=== PATIENT | female | born 1965 | race Caucasian/White ===

== ENCOUNTER → 2017-11-22 | Outpatient (CLI) | payer MEDICARE ==
[~2017-11-22] MED LIST: ACIDOPHILUS PO; ALBIPROI INH; ALBU90OI; ALBU90OI6 INH; ALBU90OI61 INH; AMOCLA875 PO; AMOX500 PO; ARIP20 PO; ASCO1ER PO; ATOR80 PO; ATORVASTATIN CA20 MG PO; AZIT250 PO; AZIT500 PO; Amoxicillin500 MG PO; Ativan1 MG PO; BENZ100A PO; BENZ2 PO; BICITRA PO; CHRO200 PO; CIPR500 PO; CLAR500 PO; CLON.1 PO; CLON.5 PO; CLON1 PO; CODGUAEL PO; DULO30 PO; ESCI5; ESOM20 PO; FENO160 PO; FENO48 PO; FISH1000 PO; FLUC150A PO; GLIP5 PO; GUAI100SY PO; HUMALOG; HYDACE5 PO; HYDGUAL120 PO; Hair, Skin & N1 EACH PO; Humalog Mi100 UNIT/4 SC; Humalog100 UNIT/1; INCARCERATION; INSULANPEN; INSULIN; LAMO100; LAMO100 PO; LANTUS; LATUDA120 MG PO; LATUDA20 MG PO; LATUDA40 MG PO; LATUDA80 MG PO; LEVSOD25 PO; LEVSOD50 PO; LIOT25 PO; LITH300ER PO; LORA.5; LORA1; LORA1 PO; LORA10ER; LOVA40 PO; MECL25 PO; METF500C PO; MULVITMIND PO; Norco 5-325 Ta1 EACH PO; OMEP20ER PO; ONDA4 PO; ONDA8ODT MM; OTC ALLERGY MED; OXYACE5T PO; OXYC10TA19; PANT40 PO; PRILOSEC; PROG100 PO; PROM25 PO; Percocet 5-3251 EACH PO; Protonix40 MG PO; Prozac40 MG PO; QUET100; QUET300; QUET300 PO; QVAR7.3 G1 IH; ROPI1 PO; SUBOXONE 8 MG-1 EACH SL; SUCR1 PO; SUCRALFATE; SULTRIDS PO; Symbyax 3-25 M1 EACH PO; TRAM50 PO; TRAZ100; TRAZ100 PO; TRET.1TC; Trazodone HCl300 MG PO; VENL150ER PO; VENL75ER; Zantac150 MG PO; Zofran Odt4 MG PO; Zofran Odt4 MG SL; Zofran8 MG PO; [UNRECOGNIZED DRUG - OTHER]; [UNRECOGNIZED DRUG - OTHER]; [UNRECOGNIZED DRUG - OTHER] PO; [UNRECOGNIZED DRUG - REMARK]
[2017-11-25 12:57] LABS: HPV Genotype 16 Not Detected (NOTDET); HPV Genotype 18 Not Detected (NOTDET)
[2017-11-28 14:35] LABS: HPV High Risk Other Not Detected (NOTDET)
== END ==
LOC: LAB 20:02 → LAB SHORT 20:02
PROVIDERS: Registered Nurse
DX: Z12.4 Encounter for screening for malignant neoplasm of cervix (principal)
CPT/HCPCS: 87624; G0123

== ENCOUNTER → 2018-09-06 | Outpatient (CLI) | payer MEDICARE | END | disposition home or self-care (01) | LOC: LAB SHORT 12:27 → PLD 12:27 | DX: N85.00 Endometrial hyperplasia, unspecified (principal); N95.0 Postmenopausal bleeding | CPT/HCPCS: 88305 ==

== ENCOUNTER 2018-11-29 20:04 | Emergency (ER) | payer MEDICARE ==
[~2018-11-29] VITALS: Ht 162.6 cm; Wt 77.1 kg
[2018-11-29 20:36] LABS: Hematocrit 38.7 % (33.0-51.0); Hemoglobin 13.1 g/dL (11.5-16.0); Mean Corpuscular HGB 28.9 pg (26.0-34.0); Mean Corpuscular HGB Conc 33.9 g/dL (31.5-36.5); Mean Corpuscular Volume 85 fL (80-100); Mean Platelet Volume 10.5 fL (9.1-12.4); Platelet Count 284 K/mm3 (150-400); RDW Coefficient Variation 12.1 % (11.7-14.2); RDW Standard Deviation 37.6 fL (35.1-46.3); Red Blood Cell Count 4.53 M/mm3 (3.80-5.20); White Blood Cell Count 8.67 K/mm3 (4.00-11.30)
[2018-11-29 20:47] LABS: Alanine Aminotransfer (ALT/SGP 47 U/L (12-78); Albumin, Blood 4.4 g/dL (3.4-5.0); Albumin/Globulin Ratio 1.6 (0.8-1.8); Alk Phos 44 U/L (50-136); Anion Gap 7 mmol/L (6-16); Aspartate Aminotrans (AST/SGOT 22 U/L (12-37); Bilirubin, Total 0.5 mg/dL (0.1-1.0); Blood Urea Nitrogen 20 mg/dL (8-24); Bun/Creatinine Ratio 16.9 (12.0-20.0); CO2, Blood 25 mmol/L (21-32); Calcium, Blood 9.7 mg/dL (8.5-10.1); Chloride, Blood 104 mmol/L (98-108); Creatinine, Blood 1.18 mg/dL (0.40-1.00); Globulin, Blood 2.8 g/dL (2.2-4.0); Glomerular Filtration Rate 51 (60-); Glucose, Blood 151 mg/dL (70-99); Potassium, Blood 3.8 mmol/L (3.5-5.5); Sodium, Blood 136 mmol/L (136-145); Total Protein, Blood 7.2 g/dL (6.4-8.2); Troponin I <0.015 ng/mL (0.000-0.040)
[2018-11-29 21:19] LABS: BASOPHILS ABSOLUTE MAN 0.17 K/mm3 (0.00-0.23); BASOPHILS PERCENT MAN 2 % (0-2); EOSINOPHILS ABSOLUTE MAN 0.52 K/mm3 (0.00-0.68); EOSINOPHILS PERCENT MAN 6 % (0-6); LYMPHOCYTES % ATYPICAL MANUAL 6 % (0-0); LYMPHOCYTES ABSOLUTE MAN 4.59 K/mm3 (0.84-5.20); LYMPHOCYTES PERCENT MAN 47 % (21-46); MONOCYTES PERCENT MAN 7 % (4-13); NEUTROPHILS ABSOLUTE MAN 2.77 K/mm3 (1.96-9.15); SEG NEUTROPHILS PERCENT MAN 32 % (41-73); TOTAL CELLS COUNTED 100
== END 2018-11-29 22:10 | disposition home or self-care (01) ==
LOC: ER 20:04
PROVIDERS: Emergency Medicine
DX: R07.9 Chest pain, unspecified (principal); E11.9 Type 2 diabetes mellitus without complications; E03.9 Hypothyroidism, unspecified; K21.9 Gastro-esophageal reflux disease without esophagitis; F17.210 Nicotine dependence, cigarettes, uncomplicated
CPT/HCPCS: 36415; 71046; 80053; 83690; 84484; 85025; 93005; 93010; 96374; 96375; 99285-25; J0780; J1200

== ENCOUNTER → 2019-01-17 | Outpatient (CLI) | payer MEDICARE, OTHER ==
[2019-01-17 13:13] LABS: Source, Urine Clean Catch
[2019-01-17 13:25] LABS: Bilirubin, Urine Neg (Neg); Blood, Urine Neg (Neg); Glucose Qualitative, Urine Neg (Neg); Ketones, Urine Neg (Neg); Leukocyte Esterase, Urine 1+ (Neg); Nitrite, Urine Neg (Neg); Protein, Urine Neg (Neg); Urobilinogen, Urine NORM (Normal); pH, Urine 6.5 (5.0-8.0)
[2019-01-17 13:34] LABS: Appearance, Urine Clear (Clear); Color, Urine Yellow (P-Yellow)
[2019-01-17 13:36] LABS: Red Blood Cells, Urine Not Seen /hpf (0-2); White Blood Cells, Urine 0-2 /hpf (0-5)
[2019-01-17 13:37] LABS: Bacteria Few /hpf; Squamous Epithelial Cells Few /hpf (Few)
== END | disposition home or self-care (01) ==
LOC: LAB 13:12 → LAB SHORT 13:12
PROVIDERS: Internal Medicine
DX: N18.3 Chronic kidney disease, stage 3 (moderate) (principal)
CPT/HCPCS: 81001

== ENCOUNTER → 2019-12-21 | Outpatient (CLI) | payer MEDICARE ==
[~2019-12-21] MED LIST changes: +ANORO ELLIPTA1 EACH INH; +Flovent 110 MCG12 GM INH; +INSULANPEN SC
[2019-12-21 13:29] LABS: BASOPHILS ABSOLUTE AUTO 0.04 K/mm3 (0.00-0.23); BASOPHILS PERCENT AUTO 1 % (0-2); EOSINOPHILS ABSOLUTE AUTO 0.14 K/mm3 (0.00-0.68); EOSINOPHILS PERCENT AUTO 3 % (0-6); Hematocrit 36.6 % (33.0-51.0); Hemoglobin 12.8 g/dL (11.5-16.0); IMMATURE GRAN ABSOLUTE AUTO 0.01 K/mm3 (0.00-0.10); IMMATURE GRAN PERCENT AUTO 0 % (0-1); LYMPHOCYTES ABSOLUTE AUTO 2.07 K/mm3 (0.84-5.20); LYMPHOCYTES PERCENT AUTO 48 % (21-46); MONOCYTES ABSOLUTE AUTO 0.25 K/mm3 (0.16-1.47); MONOCYTES PERCENT AUTO 6 % (4-13); Mean Corpuscular HGB 29.8 pg (26.0-34.0); Mean Corpuscular Volume 85 fL (80-100); NEUTROPHILS ABSOLUTE AUTO 1.77 K/mm3 (1.96-9.15); NEUTROPHILS PERCENT AUTO 41 % (41-73); Platelet Count 240 K/mm3 (150-400); RDW Standard Deviation 37.3 fL (35.1-46.3); White Blood Cell Count 4.28 K/mm3 (4.00-11.30)
[2019-12-21 13:36] LABS: Albumin, Blood 4.6 g/dL (3.4-5.0); Albumin/Globulin Ratio 1.5 (0.8-1.8); Bilirubin, Total 0.4 mg/dL (0.1-1.0); Calcium, Blood 8.8 mg/dL (8.5-10.1); Creatinine, Blood 1.1 mg/dL (0.40-1.00); Globulin, Blood 3.1 g/dL (2.2-4.0); Potassium, Blood 4.4 mmol/L (3.5-5.5); Total Protein, Blood 7.7 g/dL (6.4-8.2)
== END | disposition home or self-care (01) ==
PROVIDERS: General Practice
DX: R10.10 Upper abdominal pain, unspecified (principal)

== ENCOUNTER 2019-12-28 13:07 | Emergency (ER) | payer MEDICARE ==
[~2019-12-28] VITALS: Ht 162.6 cm; Wt 86.2 kg
[2019-12-28] MEDS ORDERED: Kristalose20 GM PO (14:15)
[2019-12-28] MEDS ORDERED: LAVAP4L PO (14:15)
== END 2019-12-28 14:44 | disposition home or self-care (01) ==
LOC: ER 13:07
DX: K59.00 Constipation, unspecified (principal); F31.9 Bipolar disorder, unspecified; E03.9 Hypothyroidism, unspecified; E11.9 Type 2 diabetes mellitus without complications; J45.909 Unspecified asthma, uncomplicated; E78.5 Hyperlipidemia, unspecified; K21.9 Gastro-esophageal reflux disease without esophagitis; Z87.11 Personal history of peptic ulcer disease; Z87.891 Personal history of nicotine dependence; Z79.4 Long term (current) use of insulin; Z79.899 Other long term (current) drug therapy
CPT/HCPCS: 99283

== ENCOUNTER 2020-02-24 13:50 | Day surgery (SDC) | payer MEDICARE ==
[~2020-02-24] VITALS: Ht 162.6 cm; Wt 87.1 kg
[~2020-02-24 13:50] MED LIST changes: +BASAGLAR K100 UNIT/1 SC; -INSULANPEN SC; +Kristalose20 GM PO; +LAVAP4L PO; +Lisinopril2.5 MG PO; +METF500 PO
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
== END 2020-02-24 15:38 | disposition home or self-care (01) ==
LOC: ORSCSDS 13:50
PROVIDERS: Internal Medicine Gastroenterology
PROC: 0DB78ZX Excision of Stomach, Pylorus, Via Natural or Artificial Opening Endoscopic, Diagnostic (ICD-10-PCS; principal; 2020-02-24 15:00)
PROC: 0DBK8ZX Excision of Ascending Colon, Via Natural or Artificial Opening Endoscopic, Diagnostic (ICD-10-PCS; principal; 2020-02-24 15:00)
PROC: 0DB98ZX Excision of Duodenum, Via Natural or Artificial Opening Endoscopic, Diagnostic (ICD-10-PCS; principal; 2020-02-24 15:00)
PROC: 0DBN8ZX Excision of Sigmoid Colon, Via Natural or Artificial Opening Endoscopic, Diagnostic (ICD-10-PCS; principal; 2020-02-24 15:00)
DX: Z12.11 Encounter for screening for malignant neoplasm of colon (principal); K21.9 Gastro-esophageal reflux disease without esophagitis; D12.4 Benign neoplasm of descending colon; D12.5 Benign neoplasm of sigmoid colon; K29.70 Gastritis, unspecified, without bleeding; K57.30 Diverticulosis of large intestine without perforation or abscess without bleeding; K64.8 Other hemorrhoids; Z87.891 Personal history of nicotine dependence; E11.9 Type 2 diabetes mellitus without complications; J45.909 Unspecified asthma, uncomplicated; N28.9 Disorder of kidney and ureter, unspecified; Z79.899 Other long term (current) drug therapy; E78.00 Pure hypercholesterolemia, unspecified; Z79.4 Long term (current) use of insulin
CPT/HCPCS: 82947; 88305; 88342; J2250; J2704; J7120

== ENCOUNTER 2020-05-07 06:02 | Day surgery (SDC) | payer MEDICARE ==
[2020-05-04 17:43] LABS: BASOPHILS ABSOLUTE AUTO 0.08 K/mm3 (0.00-0.23); BASOPHILS PERCENT AUTO 2 % (0-2); EOSINOPHILS ABSOLUTE AUTO 0.25 K/mm3 (0.00-0.68); EOSINOPHILS PERCENT AUTO 5 % (0-6); Hematocrit 39.7 % (33.0-51.0); Hemoglobin 13.7 g/dL (11.5-16.0); IMMATURE GRAN ABSOLUTE AUTO 0.01 K/mm3 (0.00-0.10); IMMATURE GRAN PERCENT AUTO 0 % (0-1); LYMPHOCYTES ABSOLUTE AUTO 2.54 K/mm3 (0.84-5.20); LYMPHOCYTES PERCENT AUTO 46 % (21-46); MONOCYTES ABSOLUTE AUTO 0.36 K/mm3 (0.16-1.47); MONOCYTES PERCENT AUTO 7 % (4-13); Mean Corpuscular HGB 29.4 pg (26.0-34.0); Mean Corpuscular HGB Conc 34.5 g/dL (31.5-36.5); Mean Corpuscular Volume 85 fL (80-100); Mean Platelet Volume 10.6 fL (9.1-12.4); NEUTROPHILS ABSOLUTE AUTO 2.23 K/mm3 (1.96-9.15); NEUTROPHILS PERCENT AUTO 41 % (41-73); Platelet Count 250 K/mm3 (150-400); RDW Coefficient Variation 12.2 % (11.7-14.2); RDW Standard Deviation 37.4 fL (35.1-46.3); Red Blood Cell Count 4.66 M/mm3 (3.80-5.20); White Blood Cell Count 5.47 K/mm3 (4.00-11.30)
[~2020-05-07] VITALS: Ht 152.4 cm; Wt 86.8 kg
[~2020-05-07 06:02] MED LIST changes: -LATUDA20 MG PO
--- NOTE | 2020-05-07 07:42 | NUR ---
Ambulatory in Day Surgery. PT VERY ANXOIUS. History, Chart, Medications and Allergies reviewed before start of procedure.Patient confirms NPO status and agrees with scheduled surgery. Patient reports completing Chlorhexadine shower X2 prior to admission to hospital.Surgical site prepped with 2% Chlorhexidine cloth wipe.
[2020-05-07 07:44] LABS: Anion Gap 8 mmol/L (6-16); Blood Urea Nitrogen 14 mg/dL (8-24); Bun/Creatinine Ratio 15.7 (12.0-20.0); CO2, Blood 25 mmol/L (21-32); Calcium, Blood 9.6 mg/dL (8.5-10.1); Chloride, Blood 107 mmol/L (98-108); Creatinine, Blood 0.89 mg/dL (0.40-1.00); Glomerular Filtration Rate >60 (60-); Glucose, Blood 197 mg/dL (70-99); Potassium, Blood 3.8 mmol/L (3.5-5.5); Sodium, Blood 140 mmol/L (136-145)
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
--- NOTE | 2020-05-08 06:05 | NUR ---
SHIFT SUMMARY POD#1. AAOX4/ANXIOUS. DISCOMFORT DECREASED WITH 2 PERCOCET Q4-5H. NO NAUSEA/EMESIS. ABD INCISIONS X4 C/D/I. SCANT VAGINAL DRAINAGE THIS SHIFT. PT UP AMBULATING IN HALLS SBA YESTARDAY EVENING, TOLERATED WELL. PT REPORTING FLATUS POST AMBULATION. IVF PER ORDERS. [facility] COVERAGE WITH LONG ACTING INSULIN PER HOME REGIMENT. PT RESTED WELL T/O NIGHT + CURRENTLY RESTING IN BED AT THIS TIME WITH CALL LIGHT IN REACH.
[2020-05-08 07:25] LABS: BASOPHILS ABSOLUTE AUTO 0.04 K/mm3 (0.00-0.23); BASOPHILS PERCENT AUTO 0 % (0-2); EOSINOPHILS ABSOLUTE AUTO 0.09 K/mm3 (0.00-0.68); EOSINOPHILS PERCENT AUTO 1 % (0-6); Hematocrit 37.2 % (33.0-51.0); Hemoglobin 12.2 g/dL (11.5-16.0); IMMATURE GRAN ABSOLUTE AUTO 0.03 K/mm3 (0.00-0.10); IMMATURE GRAN PERCENT AUTO 0 % (0-1); LYMPHOCYTES ABSOLUTE AUTO 4.46 K/mm3 (0.84-5.20); LYMPHOCYTES PERCENT AUTO 45 % (21-46); MONOCYTES PERCENT AUTO 5 % (4-13); Mean Corpuscular HGB Conc 32.8 g/dL (31.5-36.5); Mean Corpuscular Volume 85 fL (80-100); Mean Platelet Volume 10.2 fL (9.1-12.4); NEUTROPHILS ABSOLUTE AUTO 4.88 K/mm3 (1.96-9.15); NEUTROPHILS PERCENT AUTO 49 % (41-73); Platelet Count 230 K/mm3 (150-400); RDW Coefficient Variation 12.4 % (11.7-14.2); RDW Standard Deviation 38.5 fL (35.1-46.3); Red Blood Cell Count 4.36 M/mm3 (3.80-5.20)
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
--- NOTE | 2020-05-08 09:47 | NUR ---
offered 2 tab po percocet pt declined stated she put a call to her reg dr re going back on her suboxone toradol given earlier will return the med asked pt to let me know what the dr says
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
--- NOTE | 2020-05-08 12:47 | NUR ---
wondersaige by to see pt
[2020-05-08] MEDS ORDERED: Percocet 10-321 EACH PO (13:31)
[2020-05-08] MEDS ORDERED: IBUP800 PO (13:32)
[2020-05-08] MEDS ORDERED: PROM25 PO (13:32)
[2020-05-08] MEDS ORDERED: Estradiol2 MG PO (13:33)
--- NOTE | 2020-05-08 14:05 | NUR ---
MORPHINE 5 MG IVP GIVEN DISCHARGE INSTRUCTIONS REVIEWED WITH PT VERBALIZED RX GIVEN NO ACUTE CHANGES PT STATED SHE ALREADY CALLED HER RIDE
--- NOTE | 2020-05-08 14:10 | NUR ---
WC ESCORT TO CAR
== END 2020-05-08 14:58 | disposition home or self-care (01) ==
LOC: ORSCMMR 06:02 → ORD 07:30 → ORSCMMR 07:30 → SURS 10:25 → ORSCMMR 05-08 14:58
PROVIDERS: Anesthesiology; Obstetrics & Gynecology
PROC: 8E0W4CZ Robotic Assisted Procedure of Trunk Region, Percutaneous Endoscopic Approach (ICD-10-PCS; principal; 2020-05-07 07:30)
PROC: 0UT24ZZ Resection of Bilateral Ovaries, Percutaneous Endoscopic Approach (ICD-10-PCS; principal; 2020-05-07 07:30)
PROC: 0UT74ZZ Resection of Bilateral Fallopian Tubes, Percutaneous Endoscopic Approach (ICD-10-PCS; principal; 2020-05-07 07:30)
PROC: 0UT94ZZ Resection of Uterus, Percutaneous Endoscopic Approach (ICD-10-PCS; principal; 2020-05-07 07:30)
DX: N94.4 Primary dysmenorrhea (principal); N80.0 Endometriosis of uterus; D25.9 Leiomyoma of uterus, unspecified; I10 Essential (primary) hypertension; E11.9 Type 2 diabetes mellitus without complications; E78.5 Hyperlipidemia, unspecified; Z87.891 Personal history of nicotine dependence; J45.909 Unspecified asthma, uncomplicated; E28.2 Polycystic ovarian syndrome; F31.9 Bipolar disorder, unspecified; Z79.84 Long term (current) use of oral hypoglycemic drugs; Z79.899 Other long term (current) drug therapy
CPT/HCPCS: 58571; S2900; 36415; 80048; 82947; 84702; 85025; 86850; 86900; 86901; 88307; A9270-GY; J0690; J1100; J1885; J2250; J2270; J2405; J2704; J2765; J3010; J7120

== ENCOUNTER 2021-09-20 23:44 | Emergency (ER) | payer MEDICARE ==
[~2021-09-20] VITALS: Ht 162.6 cm; Wt 86.2 kg
[~2021-09-20 23:44] MED LIST changes: +Estradiol2 MG PO; +IBUP800 PO; +Percocet 10-321 EACH PO
[2021-09-21] MEDS ORDERED: HYDR1TAB94 PO (00:18)
== END 2021-09-21 00:42 | disposition home or self-care (01) ==
LOC: ER 23:44
DX: S63.501A Unspecified sprain of right wrist, initial encounter (principal); E11.9 Type 2 diabetes mellitus without complications; K21.9 Gastro-esophageal reflux disease without esophagitis; Z87.891 Personal history of nicotine dependence; Z79.899 Other long term (current) drug therapy; Z79.4 Long term (current) use of insulin; X58.XXXA Exposure to other specified factors, initial encounter
CPT/HCPCS: 29125; 99283-25; A9270

== ENCOUNTER 2021-12-14 06:42 | Day surgery (SDC) | payer MEDICARE ==
[~2021-12-14] VITALS: Ht 162.6 cm; Wt 89.4 kg
[~2021-12-14 06:42] MED LIST changes: +HYDR1TAB94 PO
--- NOTE | 2021-12-14 08:11 | NUR ---
12/14/21 0811 BETSY MAURICIO LIDOCAINE 1% MIXED WITH 0.3ML EPINEPHRINE TO CREATE A LOCAL INJECTION OF LIDOCAINE 1% WITH 1:100,000 EPI. 10MLS OF LOCAL INJECTED INTO RIGHT HAND BY NATHAN WATSON AT BEGINNING OF CASE.
--- NOTE | 2021-12-14 08:37 | NUR ---
12/14/21 0837 ANA MARIA DODD PT UP IN CHAIR DRINKING COFFEE, MAKING JOKES, DENIES ANY PAIN AT THIS TIME
== END 2021-12-14 08:47 | disposition home or self-care (01) ==
LOC: ORSCSDS 06:42
PROVIDERS: Orthopaedic Surgery
PROC: 01N50ZZ Release Median Nerve, Open Approach (ICD-10-PCS; principal; 2021-12-14 08:00)
DX: G56.01 Carpal tunnel syndrome, right upper limb (principal); I10 Essential (primary) hypertension; J45.909 Unspecified asthma, uncomplicated; F17.210 Nicotine dependence, cigarettes, uncomplicated; E11.9 Type 2 diabetes mellitus without complications; E66.9 Obesity, unspecified; Z68.33 Body mass index [BMI] 33.0-33.9, adult; Z79.4 Long term (current) use of insulin; Z79.899 Other long term (current) drug therapy
CPT/HCPCS: 82947; J0171; J0690; J2250; J2704; J7120